=== PATIENT | female | born 1990 | race Caucasian/White ===

== ENCOUNTER 2017-04-12 04:55 | Inpatient (IN) | payer OTHER ==
[~2017-04-12] VITALS: Ht 175.3 cm; Wt 88.0 kg
[2017-04-12] VITALS (15 sets, daily range): BP systolic 112–143; BP diastolic 61–84; PULSE 72–85; RESP 16–18; TEMP 97.9–98.3
[2017-04-12] MEDS ORDERED: PREN1TAB30 (05:46)
[2017-04-12] MEDS ORDERED: LACTATED RINGER'S 1000 ML INJ 1,000 ML IV PRN (06:07)
--- NOTE | 2017-04-12 06:10 | PD ---
HPI Chief Complaint LOF Date Seen: Apr 12, 2017 Travel History International Travel<30 Days: No Contact w/Intl Traveler<30Days: No Known Affected Area: No History of Present Illness HPI 27 yo @ [address] Russell. Uncomplicated , late [place] of state. GBS POS. Patient presents noting large gush of fluid when she awoke this AM, clear fluid. UC now stronger than before. SVE in clinic 3cm. No VB. +FM History Past Medical History Narrative Medical Abnormal pap smear Migraine HAs Anxiety Tattoo x 5 Obstetric History Obstetric History G1 Past Surgical History Narrative Surgical knee arthroscopy 2009 Family History Family History: Negative Social History Alcohol Use: No Tobacco Use: No Substance Abuse: No Allergies-Medications (Allergen,Severity, Reaction): Coded Allergies: No Known Allergies (Unverified , 04/12/17) Home Meds Reported Medications Vit W/ Ferrous Fumara ( Vitamin 27-0.8 mg)1 Tab Tab 04/12/17 Review of Systems General / Constitutional: No: Fever, Chills Eyes: No: Blurred Vision HENT: No: Headaches Cardiovascular: No: Chest Pain or Discomfort, Palpitations Respiratory: No: Cough, Short of Breath Gastrointestinal: Abdominal Pain (occasional contractions), No: Nausea, Vomiting Genitourinary: Discharge (clear fluid), No: Urgency, Frequency, Dysuria, Vaginal Bleeding Musculoskeletal: No: Limited ROM, Weakness, Edema Skin: No Rash, No Lesions Neurologic: No: Focal Abnormalities, Coordination Problem Physical Exam Narrative GENERAL: Well-nourished, well-developed patient. SKIN: Warm and dry. HEAD: Normocephalic and atraumatic. EYES: No scleral icterus. No injection or drainage. ENT: No nasal drainage noted. Mucous membranes pink. Airway patent. NECK: trachea midline. No JVD. CARDIOVASCULAR: Regular rate and rhythm without murmurs, gallops, or rubs. RESPIRATORY: Breath sounds equal bilaterally. No accessory muscle use. ABDOMEN/GI: Abdomen soft, non-tender, no rebound, no guarding Gravid GENITOURINARY: Amnisure POS SVE: 4-5/70/-1 FHT's: Category: I Baseline: 140 Reactive: + accelerations Variability: mod Decels: [-] EXTREMITIES: No cyanosis, trace edema. BACK: Nontender without obvious deformity. No CVA tenderness. NEUROLOGICAL: Awake and alert. Motor and sensory grossly within normal limits. Normal speech. Data Data Vital Signs Reviewed: Yes Orders Ob (2e) Additional Admit Info (04/12/17 05:35) Vital Signs (Adult) .ON ADMISSION (04/12/17 06:07) ^ Labor Status (04/12/17 06:07) ^ Non Stress Test (04/12/17 06:07) Admit To Inpatient (04/12/17 ) Code Status (04/12/17 06:07) Vital Signs (Adult) .Per protocol (04/12/17 06:07) Activity Oob Ad Blossom (04/12/17 06:07) Heart (04/12/17 06:07) Amnioinfusion (04/12/17 06:07) Urinary Catheter Management .ONCE (04/12/17 06:07) Diet Liquid (04/12/17 Breakfast) Lactated Ringer's 1000 Ml Inj (Lr 1000 M (04/12/17 06:07) Lactated Ringer's 1000 Ml Inj (Lr 1000 M (04/12/17 06:07) Sodium Chlorid 0.9% 500 Ml Inj (Ns 500 M (04/12/17 06:15) Sodium Chlor 0.9% 1000 Ml Inj (Ns 1000 M (04/12/17 06:27) Lidocaine 1% Inj (50 Ml) (Xylocaine 1% I (04/12/17 06:15) Citric Acid-Sodium Citrate Liq (Bicitra (04/12/17 06:15) Ondansetron Inj (Zofran Inj) (04/12/17 06:15) Fentanyl Inj (Fentanyl Inj) (04/12/17 06:15) Fentanyl Inj (Fentanyl Inj) (04/12/17 06:15) Penicillin G Potassium Inj (Pfizerpen-G (04/12/17 06:15) Penicillin G Potassium Inj (Pfizerpen-G (04/12/17 10:15) Complete Blood Count With Diff (04/12/17 06:07) Hold Clot (04/12/17 06:07) Abo/Rh Blood Type (04/12/17 06:07) Resp Oxygen Non Rebreathe Mask (6/9/17 ) ^ Epidural / Intrathecal Infus (04/12/17 06:07) Oxytocin 30 Units-500ml Premix (Pitocin (04/12/17 06:15) Lidocaine 1% Inj (50 Ml) (Xylocaine 1% I (04/12/17 06:15) Light Mineral Oil (Muri-Lube Oil) (04/12/17 06:15) Inpatient Certification (04/12/17 ) MDM Narrative Course / MDM 37 weeks PROM, clear fluid Amnisure pos GBS POS UC starting to increase CAT I FHT Plan Admit Guy Expectant management, Pitocin as indicated Has birthing plan Desires to avoid pain medication at this time. Nevin Loving MD Apr 12, 2017 06:10
[2017-04-12] MEDS ORDERED: LIDOCAINE HCL 1% 50 ML VIAL I-DERMAL PRN (06:15)
[2017-04-12] MEDS ORDERED: CITRIC ACID-SODIUM CITRATE LIQ 30 ML UDC PO SCH (06:15)
[2017-04-12] MEDS ORDERED: LIDOCAINE HCL 1% 50 ML VIAL INFIL PRN (06:15)
[2017-04-12] MEDS ORDERED: OXYTOCIN 30 UNITS-500ML PREMIX 500 ML IV ONE (06:15)
[2017-04-12] MEDS ORDERED: ONDANSETRON HCL 4 MG/2 ML VIAL IV PRN (06:15)
[2017-04-12] MEDS ORDERED: MINERAL OIL 10 ML VIAL TOPICAL PRN (06:15)
[2017-04-12] MEDS ORDERED: PENICILLIN G POTASSIUM INJ 5,000,000 UNITS in SODIUM CHLORIDE 0.9% INJ 100 ML IV ONE (06:15)
[2017-04-12] MEDS ORDERED: SODIUM CHLORID 0.9% 500 ML INJ 500 ML IV PRN (06:15)
[2017-04-12] MEDS ORDERED: SODIUM CHLOR 0.9% 1000 ML INJ 1,000 ML IV PRN (06:27)
[2017-04-12] MEDS: LACTATED RINGER'S 1000 ML INJ 1,000 ML IV SCH ×3 (06:48→15:54)
--- NOTE | 2017-04-12 06:55 | HHI.HP ---
History & Physical H&P Patient Name: Chuckie Sandhu Unit Number: [id number] Date of : 1990 Patient Status: Admitted Inpatient Attending Doctor: Yenifer Russell MD HPI HPI Chief Complaint LOF Date Seen: Apr 12, 2017 Travel History International Travel<30 Days: No Contact w/Intl Traveler<30Days: No Known Affected Area: No History of Present Illness HPI 27 yo @ [address] Russell. Uncomplicated , late [place] care [place]. GBS POS. Patient presents noting large gush of fluid when she awoke this AM, clear fluid. UC now stronger than before. SVE in clinic 3cm. No VB. +FM History (Limited) History Past Medical History Narrative Medical Abnormal pap smear Migraine HAs Anxiety Tattoo x 5 Obstetric History Obstetric History G1 Past Surgical History Narrative Surgical knee arthroscopy 2008 Family History Family History: Negative Social History Alcohol Use: No Tobacco Use: No Substance Abuse: No Allergies-Medications Allergies-Medications (Allergen,Severity, Reaction): Coded Allergies: No Known Allergies (Unverified , 04/12/17) Home Meds Reported Medications Vit W/ Ferrous Fumara ( Vitamin 27-0.8 mg)1 Tab Tab 04/12/17 ROS Review of Systems General / Constitutional: No: Fever, Chills Eyes: No: Blurred Vision HENT: No: Headaches Cardiovascular: No: Chest Pain or Discomfort, Palpitations Respiratory: No: Cough, Short of Breath Gastrointestinal: Abdominal Pain (occasional contractions), No: Nausea, Vomiting Genitourinary: Discharge (clear fluid), No: Urgency, Frequency, Dysuria, Vaginal Bleeding Musculoskeletal: No: Limited ROM, Weakness, Edema Skin: No Rash, No Lesions Neurologic: No: Focal Abnormalities, Coordination Problem Physical Exam Physical Exam Narrative GENERAL: Well-nourished, well-developed patient. SKIN: Warm and dry. HEAD: Normocephalic and atraumatic. EYES: No scleral icterus. No injection or drainage. ENT: No nasal drainage noted. Mucous membranes pink. Airway patent. NECK: trachea midline. No JVD. CARDIOVASCULAR: Regular rate and rhythm without murmurs, gallops, or rubs. RESPIRATORY: Breath sounds equal bilaterally. No accessory muscle use. ABDOMEN/GI: Abdomen soft, non-tender, no rebound, no guarding Gravid GENITOURINARY: Amnisure POS SVE: 4-5/70/-1 FHT's: Category: I Baseline: 140 Reactive: + accelerations Variability: mod Decels: [-] EXTREMITIES: No cyanosis, trace edema. BACK: Nontender without obvious deformity. No CVA tenderness. NEUROLOGICAL: Awake and alert. Motor and sensory grossly within normal limits. Normal speech. Data Data Data Vital Signs Reviewed: Yes Orders Ob (2e) Additional Admit Info (04/12/17 05:35) Vital Signs (Adult) .ON ADMISSION (04/12/17 06:07) ^ Labor Status (04/12/17 06:07) ^ Non Stress Test (04/12/17 06:07) Admit To Inpatient (04/12/17 ) Code Status (04/12/17 06:07) Vital Signs (Adult) .Per protocol (04/12/17 06:07) Activity Oob Ad Blossom (04/12/17 06:07) Heart (04/12/17 06:07) Amnioinfusion (04/12/17 06:07) Urinary Catheter Management .ONCE (04/12/17 06:07) Diet Liquid (04/12/17 Breakfast) Lactated Ringer's 1000 Ml Inj (Lr 1000 M (04/12/17 06:07) Lactated Ringer's 1000 Ml Inj (Lr 1000 M (04/12/17 06:07) Sodium Chlorid 0.9% 500 Ml Inj (Ns 500 M (04/12/17 06:15) Sodium Chlor 0.9% 1000 Ml Inj (Ns 1000 M (04/12/17 06:27) Lidocaine 1% Inj (50 Ml) (Xylocaine 1% I (04/12/17 06:15) Citric Acid-Sodium Citrate Liq (Bicitra (04/12/17 06:15) Ondansetron Inj (Zofran Inj) (04/12/17 06:15) Fentanyl Inj (Fentanyl Inj) (04/12/17 06:15) Fentanyl Inj (Fentanyl Inj) (04/12/17 06:15) Penicillin G Potassium Inj (Pfizerpen-G (04/12/17 06:15) Penicillin G Potassium Inj (Pfizerpen-G (04/12/17 10:15) Complete Blood Count With Diff (04/12/17 06:07) Hold Clot (04/12/17 06:07) Abo/Rh Blood Type (04/12/17 06:07) Resp Oxygen Non Rebreathe Mask (04/12/17 ) ^ Epidural / Intrathecal Infus (04/12/17 06:07) Oxytocin 30 Units-500ml Premix (Pitocin (04/12/17 06:15) Lidocaine 1% Inj (50 Ml) (Xylocaine 1% I (04/12/17 06:15) Light Mineral Oil (Muri-Lube Oil) (04/12/17 06:15) Inpatient Certification (04/12/17 ) MDM MDM Narrative Course / MDM 37 weeks PROM, clear fluid Amnisure pos GBS POS UC starting to increase CAT I FHT Plan Admit Guy Expectant management, Pitocin as indicated Has birthing plan Desires to avoid pain medication at this time. Nevin Loving MD Apr 12, 2017 06:10 Nevin Loving MD Apr 12, 2017 06:54
[2017-04-12 06:57] LABS: AUTOMATED NEUTROPHIL # 9.4 TH/MM3 (1.8-7.7); BASOPHIL % 0.4 % (0.0-2.0); EOSINOPHIL # 0.2 TH/MM3 (0-0.4); EOSINOPHIL % 1.9 % (0.0-4.0); HEMATOCRIT 39.8 % (35.0-46.0); LYMPH % 16.5 % (9.0-44.0); LYMPHOCYTE # 2.1 TH/MM3 (1.0-4.8); MEAN CELL VOLUME 91.6 FL (80.0-100.0); MEAN CORPUSCULAR HGB CONC 33.8 % (32.0-36.0); MONO % 7.2 % (0.0-8.0); PLATELET COUNT 129 TH/MM3 (150-450); RED BLOOD COUNT 4.35 MIL/MM3 (4.00-5.30); RED CELL DISTRIBUTION WIDTH 13.5 % (11.6-17.2); WHITE BLOOD COUNT 12.7 TH/MM3 (4.0-11.0)
[2017-04-12 06:59] LABS: HEMO FLAGS AUTO DIFF
[2017-04-12 07:47] LABS: EOSINOPHILS 1 % (0-4); METAMYELOCYTES 1 % (0-1); MYELOCYTES 1 % (0-0); NEUTROPHIL # MANUAL DIFF 9.3 TH/MM3 (1.8-7.7); PLATELET ESTIMATE SMEAR LOW (NORMAL); PLATELET MORPHOLOGY NORMAL (NORMAL); POLYS (SEG NEUTROPHILS) 71 % (16-70); WBC DIFF SAMPLE 100
[2017-04-12 07:48] LABS: SCAN/DIFF FINAL DIFF MANUAL
[2017-04-12 08:09] LABS: BACTERIA, URINE OCC /hpf; BLOOD, URINE TRACE (NEG); COMMENT (UR) CULT NOT INDICATED; CULTURE IF INDICATED CULT NOT INDICATED; GLUCOSE,URINE 70 mg/dL (NEG); KETONE, URINE NEG (NEG); NITRITE,URINE NEG (NEG); SQUAMOUS EPITHELIAL CELL URINE <1 /hpf (0-5); URINE COLOR YELLOW (YELLW/STRAW)
--- NOTE | 2017-04-12 08:11 | PD.LABORPN ---
Subjective Subjective comfortable with irregular UCs GFM leaking clear fluid on PCN for GBS Objective Vital Signs Vital Signs Date Time Temp Pulse Resp B/P Pulse Ox O2 Delivery O2 Flow Rate FiO2 04/12/17 07:18 18 04/12/17 07:11 98.0 04/12/17 07:11 73 140/78 Objective 4-5 per RN strip category 1 pelvis clinically adeuqate EFW 7 Assessment/Plan Assessment and Plan anticipate allow to eat and walk etc. Yenifer Russell MD Apr 12, 2017 08:10
[2017-04-12] MEDS ORDERED: OXYTOCIN 30 UNITS-500ML PREMIX 500 ML IV SCH (08:15)
[2017-04-12] MEDS: PENICILLIN G POTASSIUM INJ 2,500,000 UNITS in SODIUM CHLORIDE 0.9% INJ 100 ML IV SCH ×2 (11:03→15:54)
[2017-04-12] MEDS ORDERED: ePHEDrine/NS 25 MG/5 ML SYR ONE (14:25)
[2017-04-12] MEDS ORDERED: fentaNYL 2MCG-BUPIV 0.125% INJ 100 ML ONE (14:25)
[2017-04-12] MEDS ORDERED: MEASLES, MUMPS, RUBELLA VACCINE 0.5 ML VIAL SQ ONE (16:00)
[2017-04-12] MEDS ORDERED: DIPHTH/TETANUS/ACEL PERTUSSIS (BOOSTER) 0.5 ML VIAL/PFS IM ONE (16:00)
[2017-04-12] MEDS ORDERED: BENZOCAINE 20% TOPICAL SPRAY 60 ML CAN TOPICAL PRN (17:45)
[2017-04-12] MEDS ORDERED: ZOLPIDEM TARTRATE 5 MG TAB PO PRN (17:45)
[2017-04-12] MEDS ORDERED: ONDANSETRON ODT 4 MG TAB PO PRN (17:45)
[2017-04-12] MEDS ORDERED: SODIUM CHLORIDE 0.9% FLUSH 10 ML FLUSH IV FLUSH PRN (17:45)
[2017-04-12] MEDS ORDERED: ALUMINUM/MAGNESIUM/SIMETH 30 ML CUP PO PRN (17:45)
[2017-04-12] MEDS ORDERED: ACETAMINOPHEN 325 MG TAB PO PRN (17:45)
[2017-04-12] MEDS ORDERED: WITCH HAZEL 50%/GLYCERIN 12.5% 40 PAD JAR TOPICAL PRN (17:45)
[2017-04-12] MEDS ORDERED: DOCUSATE SODIUM 50 MG/SENNA 8.6 MG TAB PO PRN (17:45)
--- NOTE | 2017-04-12 17:45 | PD.OB.DELI ---
Anesthesia: Epidural Episiotomy: None Vaginal Delivery: Normal Presentation: Compound Nuchal Cord: x1 Delayed cord clamping (45 sec): Yes Infant: Male One Minute : 9 Five Minute : 9 Weight: 7 7 Placenta: Spontaneous delivery Laceration: Vaginal laceration Repair: Chromic interrupted (right lateral sulcus tear repaired.) Yenifer Russell MD Apr 12, 2017 17:45
[2017-04-12] MEDS ORDERED: SODIUM CHLORIDE 0.9% FLUSH 10 ML FLUSH IV FLUSH SCH (21:00)
[2017-04-12] MEDS: IBUPROFEN 600 MG TAB PO PRN (22:17)
[2017-04-13] MEDS: PENICILLIN G POTASSIUM INJ 2,500,000 UNITS in SODIUM CHLORIDE 0.9% INJ 100 ML IV SCH (03:33)
[2017-04-13 08:00] VITALS: BP 134/70; PULSE 73; RESP 18; TEMP 97.9
[2017-04-13] MEDS: IBUPROFEN 600 MG TAB PO PRN ×2 (08:11→18:17)
--- NOTE | 2017-04-13 14:39 | HHI.OB ---
Subjective Post Day: 1 Remarks Doing well, pain is under controll Baby is doing well Tolerating diet Objective Vitals/I&O Vital Signs Date Time Temp Pulse Resp B/P Pulse Ox O2 Delivery O2 Flow Rate FiO2 04/13/17 08:00 97.9 73 18 134/70 04/12/17 20:00 97.9 75 16 120/84 04/12/17 20:00 112/61 04/12/17 19:49 98.3 77 18 118/62 04/12/17 19:05 18 04/12/17 19:00 82 129/73 04/12/17 14:58 84 133/72 04/12/17 14:56 83 127/64 04/12/17 14:55 85 04/12/17 14:50 77 137/62 04/12/17 14:50 75 04/12/17 14:46 72 143/64 04/12/17 14:45 74 Objective Remarks GENERAL: Well-nourished, well-developed patient. CARDIOVASCULAR: Regular rate and rhythm without murmurs, gallops, or rubs. RESPIRATORY: Breath sounds equal bilaterally. No accessory muscle use. ABDOMEN/GI: Abdomen soft, non-tender. Fundus: Firm, non-tender at umbilicus. GENITOURINARY: Light to moderate bleeding. EXTREMITIES: No cyanosis or edema, non-tender, without signs of DVT. Medications and IVs Current Medications Medications (Trade) Dose Ordered Sig/Parrish Route Start Time Stop Time Status Last Admin Lactated Ringer's 1,000 ml @ 125 mls/hr Q8H IV 04/12/17 06:07 04/12/17 15:54 Lactated Ringer's 1,000 ml @ 3,000 mls/hr Q20M PRN IV 04/12/17 06:07 (NS 1000 ml Inj) 1,000 ml @ 100 mls/hr Q10H PRN IV 04/12/17 06:27 (Zofran Inj) 4 mg Q6H PRN IV 04/12/17 06:15 (fentaNYL INJ) 50 mcg Q1H PRN IV PUSH 04/12/17 06:15 Fentanyl Citrate 100 mcg 100 mcg Q1H PRN IV PUSH 04/12/17 06:15 04/12/17 13:54 (Pfizerpen-G Inj/ NS Inj) 100 ml @ 200 mls/hr Q4H IV 04/12/17 10:00 04/12/17 15:54 Mineral Oil 10 ml 10 ml UNSCH PRN TOPICAL 04/12/17 06:15 (Pitocin 30 Units-NS 500 ml Premix) 500 ml @ 0 mls/hr TITRATE IV 04/12/17 08:15 04/12/17 11:02 (NS Flush) 2 ml BID IV FLUSH 04/12/17 21:00 (NS Flush) 2 ml UNSCH PRN IV FLUSH 04/12/17 17:45 (Tylenol) 650 mg Q4H PRN PO 04/12/17 17:45 (Motrin) 600 mg Q6H PRN PO 04/12/17 17:45 04/13/17 08:11 (Americaine 20% Top Spr) 1 spray Q4H PRN TOPICAL 04/12/17 17:45 04/12/17 22:17 (Tucks Pads) 1 applic QID PRN TOPICAL 04/12/17 17:45 04/12/17 22:17 (Leela-Colace) 2 tab Q12H PRN PO 04/12/17 17:45 (Ambien) 5 mg HS PRN PO 04/12/17 17:45 (Mag-Al Plus Susp Liq) 15 ml Q8H PRN PO 04/12/17 17:45 (Zofran Odt) 4 mg Q6H PRN PO 04/12/17 17:45 Assessment/Plan Assessment and Plan PPD #1 Doing well Home tomorrow Needs circ. Caren Rhoades MD Apr 13, 2017 14:39
[2017-04-13] MEDS ORDERED: IBUP-232 PO (18:06)
[2017-04-13 22:00] VITALS: BP 111/53; PULSE 73; RESP 18; TEMP 98.7
[2017-04-14 07:56] VITALS: BP 98/49; PULSE 81; RESP 18; TEMP 98.4
--- NOTE | 2017-04-14 09:58 | HHI.OB ---
Subjective Post Day: 2 Remarks doing well nipples sore no pain from sulcus tear repair lochia normal baby mildly jaundiced Objective Vitals/I&O Vital Signs Date Time Temp Pulse Resp B/P Pulse Ox O2 Delivery O2 Flow Rate FiO2 04/14/17 07:56 98.4 81 18 98/49 04/13/17 22:00 98.7 73 18 111/53 Objective Remarks GENERAL: Well-nourished, well-developed patient. CARDIOVASCULAR: Regular rate and rhythm without murmurs, gallops, or rubs. RESPIRATORY: Breath sounds equal bilaterally. No accessory muscle use. ABDOMEN/GI: Abdomen soft, non-tender. Fundus: Firm, non-tender at umbilicus. GENITOURINARY: Light to moderate bleeding. EXTREMITIES: No cyanosis or edema, non-tender, without signs of DVT. Medications and IVs Current Medications Medications (Trade) Dose Ordered Sig/Parrish Route Start Time Stop Time Status Last Admin Lactated Ringer's 1,000 ml @ 125 mls/hr Q8H IV 04/12/17 06:07 04/12/17 15:54 Lactated Ringer's 1,000 ml @ 3,000 mls/hr Q20M PRN IV 04/12/17 06:07 (NS 1000 ml Inj) 1,000 ml @ 100 mls/hr Q10H PRN IV 04/12/17 06:27 (Zofran Inj) 4 mg Q6H PRN IV 04/12/17 06:15 (fentaNYL INJ) 50 mcg Q1H PRN IV PUSH 04/12/17 06:15 Fentanyl Citrate 100 mcg 100 mcg Q1H PRN IV PUSH 04/12/17 06:15 04/12/17 13:54 (Pfizerpen-G Inj/ NS Inj) 100 ml @ 200 mls/hr Q4H IV 04/12/17 10:00 04/12/17 15:54 Mineral Oil 10 ml 10 ml UNSCH PRN TOPICAL 04/12/17 06:15 (Pitocin 30 Units-NS 500 ml Premix) 500 ml @ 0 mls/hr TITRATE IV 04/12/17 08:15 04/12/17 11:02 (NS Flush) 2 ml BID IV FLUSH 04/12/17 21:00 (NS Flush) 2 ml UNSCH PRN IV FLUSH 04/12/17 17:45 (Tylenol) 650 mg Q4H PRN PO 04/12/17 17:45 (Motrin) 600 mg Q6H PRN PO 04/12/17 17:45 04/13/17 18:17 (Americaine 20% Top Spr) 1 spray Q4H PRN TOPICAL 04/12/17 17:45 04/12/17 22:17 (Tucks Pads) 1 applic QID PRN TOPICAL 04/12/17 17:45 04/12/17 22:17 (Leela-Colace) 2 tab Q12H PRN PO 04/12/17 17:45 (Ambien) 5 mg HS PRN PO 04/12/17 17:45 (Mag-Al Plus Susp Liq) 15 ml Q8H PRN PO 04/12/17 17:45 (Zofran Odt) 4 mg Q6H PRN PO 04/12/17 17:45 Assessment/Plan Assessment and Plan PPD #2 Doing well Circ done follow up in office Yenifer Russell MD Apr 14, 2017 09:58
--- NOTE | 2017-04-14 10:00 | HHI.DCPOC ---
Discharge Care Plan Report Symptoms to Your Doctor -Temperature above 100.5 degrees -Redness, of incision or excessive or foul smelling drainage -Unusual pain or calf pain -Increased vaginal bleeding -Painful or difficulty urinating -Feelings of extreme sadness or anxiety after 2 weeks Goals to Promote Your Health * To prevent worsening of your condition and complications * To maintain your health at the optimal level Directions to Meet Your Goals Take your medications as prescribed Follow your dietary instruction Follow activity as directed Ensure plenty of rest for recovery Drink fluids for hydration Keep your appointments as scheduled Take your immunizations and boosters as scheduled If your symptoms worsen call your PCP, if no PCP go to Urgent Care Center or Emergency Room Smoking is Dangerous to Your Health. Avoid second hand smoke Call the 24-hour crisis hotline for domestic abuse at Yenifer Russell MD Apr 14, 2017 10:00
== END 2017-04-14 17:24 | disposition home or self-care (01) | DRG 775 ==
LOC: HOBED 04:55 → H2EA 05:37 → H1EA 19:41
PROVIDERS: ADMIT Obstetrics & Gynecology; ATTEND Obstetrics & Gynecology
PROC: 10E0XZZ Delivery of Products of Conception, External Approach (ICD-10-PCS; principal; 2017-04-12)
PROC: 0HQ9XZZ Repair Perineum Skin, External Approach (ICD-10-PCS; 2017-04-12)
DX: O42.02 Full-term premature rupture of membranes, onset of labor within 24 hours of rupture (principal); O99.824 Streptococcus B carrier state complicating childbirth; Z37.0 Single live birth; Z3A.37 37 weeks gestation of pregnancy; O69.81X0 Labor and delivery complicated by cord around neck, without compression, not applicable or unspecified; O70.0 First degree perineal laceration during delivery; O32.6XX0 Maternal care for compound presentation, not applicable or unspecified
CPT/HCPCS: 59025; 81001; 84112; 85007; 85027; 86900; 86901; J2540; J2590; J3010; J7120